=== PATIENT | female | born 1935 | race African-American/Black ===

== ENCOUNTER 2017-11-07 14:20 | Inpatient (IN) | payer MEDICARE, MEDICAID ==
--- NOTE | 2017-11-07 14:47 | ED Physician Chart ---
ED Chief Complaint/HPI - Patient Information Date Seen:: 11/07/17 Time Seen:: 14:30 Chief Complaint:: increased agitation History of Present Illness:: Patient resides in a locked Alzheimer's unit. She is sent here for admission to [facility] because of yelling, screaming, agitation, disruptive behavior. Historian:: Family Member Review:: Nurse's Note Reviewed ED Review of Systems - Review of Systems General/Constitutional: No fever, No chills Skin: No skin lesions Head: No headache Eyes: No loss of vision ENT: No earache Neck: No neck pain Cardio Vascular: No chest pain, No palpitations Pulmonary: No SOB GI: No nausea, No vomiting G/U: No dysuria Musculoskeletal: No bone or joint pain, No back pain, No muscle pain Endocrine: No polyuria, No polydipsia Psychiatric: Prior psych history Hematopoietic: No bruising Allergic/Immuno: No urticaria Neurological: No syncope, No focal symptoms ED Past Medical History - Past Medical History Past Medical History: HTN, Dementia, Other (status post recent urinary tract infection; schizophrenia) Family History: Heart disease, HTN Social History: Non Smoker, Care Facility, Other (quit smoking 35-40 years ago) Surgical History: None Psychiatricy History: Schizophrenia Medication: Reviewed Family Medical History - Family Member Father Hx Family Coronary Artery Disease: Yes Hx Family Hypertension: Yes ED Physical Exam - Physical Examination General/Constitutional: Awake, Well-developed, well-nourished, Alert, Ambulatory Other Gen/Cons comments:: Patient is confused; she apparently does not know the correct year Head: Atraumatic Eyes: Lids, conjuctiva normal, PERRL Skin: Nl inspection, No rash, No skin lesions, No ecchymosis ENMT: External ears, nose nl, Nasal exam nl Neck: No nuchal rigidity Respiratory: Nl effort/Exclusion, Clear to Auscultation, No Wheeze/Rhonchi/Rales Cardio Vascular: RRR, No murmur, gallop, rubs GI: No tenderness/rebounding/guarding, No organomegaly, No hernia, Normal BS's : No CVA tenderness Extremities: Normal digits & nails Neuro/Psych: No focal deficits Misc: No paraspinal tenderness ED Labs/Radiology/EKG Results - Lab Results Results: Laboratory Results - last 24 hr 11/07/17 11/07/17 11/07/17 15:00 15:00 15:00 WBC 5.4 RBC 4.19 Hgb 12.9 Hct 39.1 L MCV 93.1 MCH 30.7 MCHC Differential 33.0 RDW 15.9 Plt Count 316 MPV 7.6 Neutrophils % 49.4 Lymphocytes % 36.0 Monocytes % 8.5 Eosinophils % 5.8 H Basophils % 0.3 Sodium 141 Potassium 3.6 Chloride 106 Carbon Dioxide 28.0 Anion Gap 10.6 BUN 18 Creatinine 0.8 Est GFR ( Amer) TNP Est GFR (Non-Af Amer) TNP BUN/Creatinine Ratio 22.5 Glucose 106 H Calcium 9.5 Total Bilirubin 0.2 L AST 16 ALT 13 Alkaline Phosphatase 123 H Total Protein 6.6 Albumin 3.7 Globulin 2.9 Albumin/Globulin Ratio 1.3 Triglycerides 99 Cholesterol 155 LDL Cholesterol Direct 85 HDL Cholesterol 59 TSH 0.90 - EKG Interpretations Rate & Rhythm: normal sinus rhythm with a rate of 71 [place]: normal axis Comments:: No ST or T-wave changes ED Septic Shock - . Is Septic Shock (SBP<90, OR Lactate>4 mmol\L) present?: No ED Reassessment (Disposition) - Diagnosis Diagnosis:: Schizophrenia; dementia with agitation - Patient Disposition Admitted to:: [facility] Admitting Medical Physician:: Nikos Ariza Admitting Psych Physician:: Tamika Barahona Condition at Disposition:: Unchanged
[2017-11-07 15:09] LABS: % BASOPHILS 0.3 % (0.0-2.0); % EOSINOPHILS 5.8 % (0.0-5.0); % MONOCYTES 8.5 % (2.0-10.0); % NEUTROPHILS 49.4 % (40.0-80.0); EOSINOPHILE ABSOLUTE 0.3 Th/cmm (0.1-0.4); HEMATOCRIT 39.1 % (41.0-60); HEMOGLOBIN 12.9 gm/dL (12-16); LYMPHOCYTE ABSOLUTE 1.9 Th/cmm (1.5-3.0); MEAN CELL VOLUME 93.1 fl (81-100); MEAN CORPUSCULAR HEMOGLOBIN 30.7 pg (27.0-31.0); MEAN PLATELET VOLUME 7.6 fl; MONOCYTE ABSOLUTE 0.5 Th/cmm (0.3-1.0); NEUTROPHILE ABSOLUTE 2.7 Th/cmm (1.8-8.0); PLATELET COUNT 316 Th/cmm (150-400); RED BLOOD COUNT 4.19 Mil/cmm (3.80-5.20); RED CELL DISTRIBUTION WIDTH 15.9 % (11.5-20.0); WHITE BLOOD COUNT 5.4 Th/cmm (4.8-10.8)
[2017-11-07] MEDS ORDERED: Haloperidol Lactate 5 mg/mL 1mL Vial IM STA (15:19)
[2017-11-07] MEDS ORDERED: Haloperidol Lactate 5 mg/mL 1mL Vial ONE (15:21)
[2017-11-07 15:28] LABS: ALB/GLOB RATIO 1.3 (1.0-1.8); ALBUMIN 3.7 gm/dL (3.7-5.3); ALKALINE PHOSPHATASE 123 U/L (34-104); ANION GAP 10.6 (7.0-16.0); BILIRUBIN,TOTAL 0.2 mg/dL (0.3-1.0); BUN - UREA NITROGEN 18 mg/dL (7-25); CALCIUM SERUM 9.5 mg/dL (8.6-10.3); CHLORIDE 106 mEq/L (98-107); CHOLESTEROL 155 mg/dL (<200); CREATININE - SERUM 0.8 mg/dL (0.6-1.2); GLUCOSE 106 mg/dL (70-105); HDL -HIGH DENSITY LIPOPROTEIN 59 mg/dL (23-92); POTASSIUM SERUM 3.6 mEq/L (3.5-5.1); SGOT 16 U/L (13-39); SGPT/ALT 13 U/L (7-52); SODIUM SERUM 141 mEq/L (136-145); TOTAL PROTEIN,SERUM 6.6 gm/dL (6.0-8.3); TRIGLYCERIDES 99 mg/dL (<150)
[2017-11-07 20:00] LABS: A1C % 5.9 % (4.0-6.0)
[2017-11-07 20:28] VITALS: BP 126/87
--- NOTE | 2017-11-08 10:40 | History & Physical ---
ADMIT DATE: PATIENT IDENTIFICATION: An 82-year-old female. REQUESTING PHYSICIAN: Dr. Natasha Waters. REASON: Medical management. CHIEF COMPLAINT: "Who are you?" HISTORY OF PRESENT ILLNESS: An 82-year-old -[place] female who lives in assisted living facility in [place] noted by staff that the patient was extremely agitated. The patient required further evaluation, so the patient was transferred to [facility] where the patient was seen by Emergency Room MD and subsequently admitted to Geropsych Unit for further treatment. PAST MEDICAL HISTORY: Remarkable for: 1. Hypertension. 2. Dementia. 3. Degenerative joint disease. 4. Osteoporosis. 5. History of neurosyphilis, status post spinal tap, but refused intrathecal treatment. MEDICATIONS AT HOME: She is taking atenolol, amlodipine, Seroquel, Namenda, Aricept, and Xanax. ALLERGIES: The patient is not allergic to medications. SOCIAL HISTORY: The patient lives in assisted living facility. The patient has previous history of smoking cigarette. No alcohol or drug use. FAMILY MEDICAL HISTORY: Remarkable for hypertension as per chart. REVIEW OF SYSTEMS: The patient does not provide a meaningful history due to patient's current condition, but upon further questioning, the patient denies any chest pain, shortness of breath, palpitation, dizziness, nausea, vomiting, diarrhea, dysuria, hematuria, hematochezia, melena. No seizure or syncopal episode. PHYSICAL EXAMINATION: GENERAL: Alert, awake, following commands without any acute distress. VITAL SIGNS: Temperature 98, pulse is 64, respiratory rate 18, blood pressure 144/84. HEENT: Normocephalic, atraumatic. Extraocular muscles intact. Tongue was pink and coated. Poor dentition noted. No oral lesions noted. No sinus tenderness. External recurrent movements are well visualized. NECK: Supple, no JVD, no hepatojugular reflex. No lymphadenopathy, thyromegaly or carotid bruit. HEART: Both heart sounds are regular. Grade 3/6 systolic murmur noted. CHEST: Lung equal in expansion, no wheezing, no crackles. ABDOMEN: Soft. No guarding, no rigidity. Liver and spleen not palpable. No palpable mass. EXTREMITIES: No edema, no cyanosis or clubbing. Pulses are +2, no calf tenderness noted. Diffuse osteoarthritic changes noted. EXTERNAL GENITAL RECTAL: Examination not done. Recommended to be done as an outpatient. NEUROLOGIC: Alert, awake, follows commands from 2-12. Cranial nerves are intact. Power in upper and lower extremities 5-. Sensation to touch intact. Babinskis, unable to assess. Cerebellar sign, unable to assess. AVAILABLE LABORATORY DATA: Performed in the Emergency Room has been reviewed. CLINICAL IMPRESSION: 1. Hypertension. 2. Degenerative joint disease. 3. Osteoporosis. 4. Alzheimer's dementia. 5. Psychotic disorder. 6. History of neurosyphilis. PLAN: 1. Resume antihypertensive medication. 2. Resume dementia medication. 3. Psychotic evaluation and management deferred to psychiatrist. 4. The patient is medically stable to participate in active Geropsych Unit. 5. Fall precautions. 6. Nutritional support. 7. General nursing care. 8. We will continue to follow this patient during the stay in the hospital. [facility]# [id number]
[2017-11-09] MEDS ORDERED: Haloperidol Lactate 5 mg/mL 1mL Vial IM ONE (07:37)
--- NOTE | 2017-11-09 23:12 | Progress Notes ---
DATE: SUBJECTIVE: The patient was seen, chart reviewed, discussed with staff. The patient is currently in the hospital confused, erratic behaviors, unruly behaviors, getting little sleep highly confused, wandering, needing a higher level of redirection, prompting a high level of ADLs are needed as the patient cannot fend for herself. The patient seen by Dr. Waters yesterday as a admission. The patient wandering in the unit, needing a lot of supervision, mumbling to self, does not know where she is or what is going on. The patient apparently resides in a locked Alzheimer's unit. She was yelling, screaming, agitated and highly disruptive. Medication were reviewed including doses and frequencies. ASSESSMENT: The patient remains unruly, disruptive, agitated, not safe for a lower level of care. PLAN: We will continue to monitor. Continue to titrate and adjust medications. Given her ongoing symptoms, she remains an acute safety risk and cannot be cared for at a lower level of care. [facility]# [id number]
--- NOTE | 2017-11-10 17:55 | Progress Notes ---
DATE: 11/10/2017 The patient was seen today, 11/10/2017. SUBJECTIVE: The patient in the hospital, confused, erratic behaviors, erratic sleep at night time. She is sleeping this morning, arousable, but highly disoriented. Staff noting she has been with yelling episodes, wandering episodes. The patient is a very poor historian. ASSESSMENT: The patient remains symptomatic, still unruly at times requiring emergency medications; yesterday, Haldol, Ativan, and Benadryl x1. PLAN: I will continue to monitor. Given her ongoing behavior, she is not safe for discharge. The patient may need a more routine order of an antipsychotic. JOB# [id number]
--- NOTE | 2017-11-11 09:41 | General Progress Note ---
Subjective - Review of Systems Subjective: Patient is seen and examined. No new events. Objective - Results Result Diagrams: 11/07/17 15:00 11/07/17 15:00 Recent Labs: Laboratory Last Values WBC 5.4 Th/cmm (4.8-10.8) 11/07/17 15:00 RBC 4.19 Mil/cmm (3.80-5.20) 11/07/17 15:00 Hgb 12.9 gm/dL (12-16) 11/07/17 15:00 Hct 39.1 % (41.0-60) L 11/07/17 15:00 MCV 93.1 fl (81-100) 11/07/17 15:00 MCH 30.7 pg (27.0-31.0) 11/07/17 15:00 MCHC Differential 33.0 pg (28.0-36.0) 11/07/17 15:00 RDW 15.9 % (11.5-20.0) 11/07/17 15:00 Plt Count 316 Th/cmm (150-400) 11/07/17 15:00 MPV 7.6 fl 11/07/17 15:00 Neutrophils % 49.4 % (40.0-80.0) 11/07/17 15:00 Lymphocytes % 36.0 % (20.0-50.0) 11/07/17 15:00 Monocytes % 8.5 % (2.0-10.0) 11/07/17 15:00 Eosinophils % 5.8 % (0.0-5.0) H 11/07/17 15:00 Basophils % 0.3 % (0.0-2.0) 11/07/17 15:00 Sodium 141 mEq/L (136-145) 11/07/17 15:00 Potassium 3.6 mEq/L (3.5-5.1) 11/07/17 15:00 Chloride 106 mEq/L (98-107) 11/07/17 15:00 Carbon Dioxide 28.0 mEq/L (21.0-31.0) 11/07/17 15:00 Anion Gap 10.6 (7.0-16.0) 11/07/17 15:00 BUN 18 mg/dL (7-25) 11/07/17 15:00 Creatinine 0.8 mg/dL (0.6-1.2) 11/07/17 15:00 Est GFR ( Amer) TNP 11/07/17 15:00 Est GFR (Non-Af Amer) TNP 11/07/17 15:00 BUN/Creatinine Ratio 22.5 11/07/17 15:00 Glucose 106 mg/dL (70-105) H 11/07/17 15:00 Hemoglobin A1c % 5.9 % (4.0-6.0) 11/07/17 15:00 Calcium 9.5 mg/dL (8.6-10.3) 11/07/17 15:00 Total Bilirubin 0.2 mg/dL (0.3-1.0) L 11/07/17 15:00 AST 16 U/L (13-39) 11/07/17 15:00 ALT 13 U/L (7-52) 11/07/17 15:00 Alkaline Phosphatase 123 U/L (34-104) H 11/07/17 15:00 Total Protein 6.6 gm/dL (6.0-8.3) 11/07/17 15:00 Albumin 3.7 gm/dL (3.7-5.3) 11/07/17 15:00 Globulin 2.9 gm/dL 11/07/17 15:00 Albumin/Globulin Ratio 1.3 (1.0-1.8) 11/07/17 15:00 Triglycerides 99 mg/dL (<150) 11/07/17 15:00 Cholesterol 155 mg/dL (<200) 11/07/17 15:00 LDL Cholesterol Direct 85 mg/dL (75-193) 11/07/17 15:00 HDL Cholesterol 59 mg/dL (23-92) 11/07/17 15:00 TSH 0.90 uIU/ml (0.34-5.60) 11/07/17 15:00 RPR WEAKLY REACTIVE (NONREACTIVE) H 11/07/17 15:00 - Physical Exam Vitals and I&O: Vital Signs Temp 97 F 11/11/17 07:05 Pulse 86 11/11/17 09:10 Resp 20 11/11/17 07:05 BP 118/61 11/11/17 09:10 Pulse Ox 96 11/11/17 07:05 Intake & Output 11/10/17 11/11/1718 18:59 06:59 18:59 Intake Total 850 Balance 850 Intake: Oral 850 Other: # Voids 4 # Bowel Movements 2 Active Medications: Current Medications Alprazolam (Xanax) 0.5 mg PO BID PRN; Protocol PRN Reason: Anxiety Stop: 01/06/18 20:35 Last Admin: 11/11/17 09:09 Dose: 0.5 mg Amlodipine Besylate (Norvasc) 10 mg PO DAILY [facility] Stop: 01/07/18 08:59 Last Admin: 11/11/17 09:10 Dose: 10 mg Atenolol (Tenormin) 50 mg PO DAILY [facility] Stop: 01/07/18 08:59 Last Admin: 11/11/17 09:10 Dose: 50 mg Diclofenac Sodium (Voltaren) 50 mg PO BID PRN PRN Reason: Pain (Moderate) Stop: 01/07/18 08:59 Donepezil HCl (Aricept) 10 mg PO DAILY [facility] Stop: 01/07/18 08:59 Last Admin: 11/11/17 09:09 Dose: 10 mg Memantine (Namenda) 10 mg PO BID [facility] Stop: 01/07/18 08:59 Last Admin: 11/11/17 09:09 Dose: 10 mg Quetiapine Fumarate (Seroquel) 100 mg PO BID PRN; Protocol PRN Reason: Pain (Moderate) Stop: 01/07/18 08:59 Quetiapine Fumarate (Seroquel) 25 mg PO TID [facility] PRN Reason: Protocol Stop: 01/10/18 08:59 General: Alert, Cooperative, No acute distress HEENT: Atraumatic, PERRLA, EOMI Neck: Supple, JVD Cardiovascular: Regular rate, Systolic murmurs Lungs: Clear to auscultation Abdomen: Bowel sounds, Soft Extremities: Other (Diffuse DJD changes+) Psych/Mental Status: Other (labile) Assessment/Plan - Assessment Assessment: Alzheimer's dementia. Hypertension. DJD psych disorder Hx of neurosyphilis. osteoporosis. - Plan Plan: Dementia meds. psych followup. Psych meds. Anti htn meds. Monitor vitals and behavior. Fall precautions. general nursing care. Continue current care. Discussed with staff.
--- NOTE | 2017-11-13 22:04 | Progress Notes ---
DATE: 11/13/[address] Waters. Case was discussed with staff of the patient, reviewed records. The patient continues to have erratic behavior. Continues to be unpredictable, impulsive. She is a bit calmer today. She was admitted on 11/07/2017 because of her erratic agitated behavior. She continues in lot of supervision. Continues to be wandering on the unit and needing redirection. She is compliant with the medication with no side effects, no sedation, no nausea, no extrapyramidal symptoms. She is on Namenda 10 mg twice a day, Seroquel 100 mg twice a day as needed and 37.5 mg 3 times a day on a regular basis with no side effects of the medication, no sedation, no nausea, no extrapyramidal symptoms. We will continue outpatient group therapy, milieu therapy, and adjust the medications as needed. [facility]# [id number]
--- NOTE | 2017-11-14 15:16 | Progress Notes ---
DATE: 11/14/2017 Case was discussed with staff of the patient's records. The patient continues to be confused, continues to be impulsive, unpredictable, continues to be acting erratic, sometimes she need supervision. She is sleeping better, eating better. She is compliant with the medication with no side effects, no sedation, no nausea, no extrapyramidal symptoms and we will continue to work with the patient in group therapy, milieu therapy, adjust medication as needed. JOB# [id number]
--- NOTE | 2017-11-14 21:46 | General Progress Note ---
Subjective - Review of Systems Service Date: 11/14/17 Subjective: Patient seen and examined doing fine denied any complaints Objective - Results Result Diagrams: 11/07/17 15:00 11/07/17 15:00 Recent Labs: Laboratory Last Values WBC 5.4 Th/cmm (4.8-10.8) 11/07/17 15:00 RBC 4.19 Mil/cmm (3.80-5.20) 11/07/17 15:00 Hgb 12.9 gm/dL (12-16) 11/07/17 15:00 Hct 39.1 % (41.0-60) L 11/07/17 15:00 MCV 93.1 fl (81-100) 11/07/17 15:00 MCH 30.7 pg (27.0-31.0) 11/07/17 15:00 MCHC Differential 33.0 pg (28.0-36.0) 11/07/17 15:00 RDW 15.9 % (11.5-20.0) 11/07/17 15:00 Plt Count 316 Th/cmm (150-400) 11/07/17 15:00 MPV 7.6 fl 11/07/17 15:00 Neutrophils % 49.4 % (40.0-80.0) 11/07/17 15:00 Lymphocytes % 36.0 % (20.0-50.0) 11/07/17 15:00 Monocytes % 8.5 % (2.0-10.0) 11/07/17 15:00 Eosinophils % 5.8 % (0.0-5.0) H 11/07/17 15:00 Basophils % 0.3 % (0.0-2.0) 11/07/17 15:00 Sodium 141 mEq/L (136-145) 11/07/17 15:00 Potassium 3.6 mEq/L (3.5-5.1) 11/07/17 15:00 Chloride 106 mEq/L (98-107) 11/07/17 15:00 Carbon Dioxide 28.0 mEq/L (21.0-31.0) 11/07/17 15:00 Anion Gap 10.6 (7.0-16.0) 11/07/17 15:00 BUN 18 mg/dL (7-25) 11/07/17 15:00 Creatinine 0.8 mg/dL (0.6-1.2) 11/07/17 15:00 Est GFR ( Amer) TNP 11/07/17 15:00 Est GFR (Non-Af Amer) TNP 11/07/17 15:00 BUN/Creatinine Ratio 22.5 11/07/17 15:00 Glucose 106 mg/dL (70-105) H 11/07/17 15:00 Hemoglobin A1c % 5.9 % (4.0-6.0) 11/07/17 15:00 Calcium 9.5 mg/dL (8.6-10.3) 11/07/17 15:00 Total Bilirubin 0.2 mg/dL (0.3-1.0) L 11/07/17 15:00 AST 16 U/L (13-39) 11/07/17 15:00 ALT 13 U/L (7-52) 11/07/17 15:00 Alkaline Phosphatase 123 U/L (34-104) H 11/07/17 15:00 Total Protein 6.6 gm/dL (6.0-8.3) 11/07/17 15:00 Albumin 3.7 gm/dL (3.7-5.3) 11/07/17 15:00 Globulin 2.9 gm/dL 11/07/17 15:00 Albumin/Globulin Ratio 1.3 (1.0-1.8) 11/07/17 15:00 Triglycerides 99 mg/dL (<150) 11/07/17 15:00 Cholesterol 155 mg/dL (<200) 11/07/17 15:00 LDL Cholesterol Direct 85 mg/dL (75-193) 11/07/17 15:00 HDL Cholesterol 59 mg/dL (23-92) 11/07/17 15:00 TSH 0.90 uIU/ml (0.34-5.60) 11/07/17 15:00 RPR WEAKLY REACTIVE (NONREACTIVE) H 11/07/17 15:00 T.pallidum Ab (FTA-ABS) Reactive (Non Reactive) H 11/07/17 15:00 - Physical Exam Vitals and I&O: Vital Signs Temp 97.1 F 11/14/17 14:30 Pulse 86 11/14/17 14:30 Resp 18 11/14/17 20:00 BP 138/84 04/05/18 14:30 Pulse Ox 98 11/14/17 14:30 Intake & Output 11/14/17 11/14/17 11/15/17 06:59 18:59 06:59 Intake Total 120 120 Balance 120 120 Intake: Oral 120 120 Other: # Voids 3 2 Active Medications: Current Medications Alprazolam (Xanax) 0.5 mg PO BID PRN; Protocol PRN Reason: Anxiety Stop: 01/06/18 20:35 Last Admin: 11/12/17 20:57 Dose: 0.5 mg Amlodipine Besylate (Norvasc) 10 mg PO DAILY [facility] Stop: 01/07/18 08:59 Last Admin: 11/14/17 08:32 Dose: Not Given Atenolol (Tenormin) 50 mg PO DAILY [facility] Stop: 01/07/18 08:59 Last Admin: 11/14/17 08:31 Dose: Not Given Diclofenac Sodium (Voltaren) 50 mg PO BID PRN PRN Reason: Pain (Moderate) Stop: 01/07/18 08:59 Donepezil HCl (Aricept) 10 mg PO DAILY [facility] Stop: 01/07/18 08:59 Last Admin: 11/14/17 08:32 Dose: 10 mg Memantine (Namenda) 10 mg PO BID [facility] Stop: 01/07/18 08:59 Last Admin: 11/14/17 16:36 Dose: 10 mg Quetiapine Fumarate (Seroquel) 100 mg PO BID PRN; Protocol PRN Reason: Pain (Moderate) Stop: 01/07/18 08:59 Quetiapine Fumarate (Seroquel) 37.5 mg PO TID [facility] PRN Reason: Protocol Stop: 01/11/18 08:59 Last Admin: 11/14/17 20:05 Dose: Not Given General: No acute distress Cardiovascular: Regular rate Lungs: Clear to auscultation Psych/Mental Status: Other (labile) Assessment/Plan - Assessment Assessment: HTN DJD AlZHEIMER'S DEMENTIA - Plan Plan: Medically stable Continue current treatment MAR reviewed Nutritional Asmnt/Malnutr-PDOC - Dietary Evaluation Malnutrition Findings (Please click <Entered> for more info): Nutritional Asmnt/Malnutrition Start: 11/13/17 12: 24 Text: Status: Complete Freq: Document 11/13/17 12:25 LCHENG (Rec: 11/13/17 12:30 HEN MARIA [email or web address]) Nutritional Asmnt/Malnutrition Patient General Information Nutritional Screening Low Risk Diagnosis psychosis Pertinent Medical Hx/Surgical Hx HTN, dementia, DJD, osteoporosis, neurosyphilis, s /p spinal tap but refused intrathecal treatment Subjective Information Pt seen sleeping in denis-chair in dining room. Pt has been sleepy this morning and Pt usually eats well when she is awake per nurse. per EMR, PO intake usually 100%. On 11/12 PO intake 0-50% noted. Current Diet Order/ Nutrition Support regular Pertinent Medications seroquel Pertinent Labs 11/07 glucose 106, A1c 5.9 Nutritional Hx/Data Height 1.6 m Height (Calculated Centimeters) 160.0 Current Weight (lbs) 55.792 kg Weight (Calculated Kilograms) 55.8 Weight (Calculated Grams) 78631.9 [place] Body Weight 115 Body Mass Index (BMI) 21.7 Weight Status Approriate GI Symptoms GI Symptoms None Last BM 11/11 Difficult in: None Skin Integrity/Comment: dryness Current %PO Good (75-100%) Estimated Nutritional Goals BEE in Kcals: Using Current wt Calories/Kcals/Kg 25-30 Kcals Calculated [id number] Protein: Using Current wt Protein g/k-1.2 Protein Calculated 56-67 Fluid: ml 1400-1680ml (1ml/kcal) Nutritional Problem No current Nutrition Prob Problem N/A Malnutrition Alert Protein-Calorie Malnutrition N/A Is there a minimum of two criteria No selected? Query Text:Check all the applicable criteria. A minimum of two criteria are recommended for diagnosis of either severe or non-severe malnutrition. Intervention/Recommendation Comments 1. Continue with current diet as ordered. 2. Monitor PO intake, wt, labs and skin integrity 3. F/U as low risk in 7 days, 11/20, PO check 11/16 Expected Outcomes/Goals Expected Outcomes/Goals 1. PO intake to meet at least 75% of nutritional needs. 2. Wt stability, skin to remain intact, labs to approach WNL.
--- NOTE | 2017-11-15 21:18 | Progress Notes ---
DATE: 11/15/2017 SUBJECTIVE: Case was discussed with the staff of the patient and reviewed records. The patient continues to be demented, confused, easily agitated, impulsive, unpredictable, acting erratic sometimes, she was feeding herself but she was feeding herself in a very disorganized manner. She has been sleeping better and eating better. Working also on placement for this patient. No side effects of the medication, no sedation, no nausea. She is on Seroquel 100 mg twice a day as needed and 37.5 mg 3 times a day as well as Namenda 10 mg twice a day and Aricept 10 mg at bedtime. No side effects with the medication, no sedation, no nausea, no extrapyramidal symptoms. We will continue the patient in group therapy, milieu therapy, and adjust medications as needed. JOB# [id number]
--- NOTE | 2017-11-16 19:06 | Progress Notes ---
DATE: The patient was seen and evaluated. The patient's chart reviewed. Upon evaluation, nursing staff reported the patient has been stable and engaging. Today on sqpt-wy-dult evaluation, no psychotic behavior, stabilized and discharged today with her family en route to . The patient will be discharged today stable. Full discharge summary to follow by Dr. Waters, primary psychiatrist. Thirty day supply given of Kailey Hays Seroquel. JOB# [id number]
== END 2017-11-16 11:10 | DRG 885 ==
LOC: ER 14:20 → GERO 16:30
PROVIDERS: ADMIT Psychiatry & Neurology Psychiatry; ATTEND Psychiatry & Neurology Psychiatry
DX: F29 Unspecified psychosis not due to a substance or known physiological condition (principal); F02.81 Dementia in other diseases classified elsewhere, unspecified severity, with behavioral disturbance; G30.9 Alzheimer's disease, unspecified; I10 Essential (primary) hypertension; M19.90 Unspecified osteoarthritis, unspecified site; M81.0 Age-related osteoporosis without current pathological fracture; Z82.49 Family history of ischemic heart disease and other diseases of the circulatory system; Z87.891 Personal history of nicotine dependence
CPT/HCPCS: 36415-UA; 80053-TC; 80061-TC; 83036-90; 84443-TC; 85025-TC; 86592-TC; 86593-TC; 86780-90; 93005; J1200; J1630; J2060; Z7610